=== PATIENT | female | born 1975 | race Caucasian/White ===

== ENCOUNTER → 2020-02-02 | Outpatient (CLI) | payer OTHER ==
[2020-02-02 13:36] LABS: URINE AMPHETAMINES < 1000 (1000ng/ml); URINE BARBITURATES < 200 (200ng/ml); URINE BENZODIAZEPINES < 200 (200ng/ml); URINE CANNABINOIDS (THC) > 50 (50ng/ml); URINE COCAINE < 300 (300ng/ml); URINE METHADONE < 300 (300ng/ml); URINE OPIATES < 300 (300ng/ml)
[2020-02-02 13:42] LABS: URINE PHENCYCLIDINE < 25 (25ng/ml)
[2020-02-02 13:49] LABS: FREE T4 0.96 ng/dl (0.76-1.46)
[2020-02-02 13:54] LABS: THYROID STIM HORMONE (HS) 0.936 uIU/ml (0.358-4.75)
== END | disposition home or self-care (01) ==
LOC: LAB 12:46
PROVIDERS: Nurse Practitioner Family
DX: Z51.81 Encounter for therapeutic drug level monitoring (principal); F41.0 Panic disorder [episodic paroxysmal anxiety]